=== PATIENT | female | born 1965 | race Caucasian/White ===

== ENCOUNTER 2021-05-30 12:37 | Emergency (ER) | payer OTHER ==
[~2021-05-30] VITALS: Ht 147.3 cm; Wt 108.9 kg
[~2021-05-30 12:37] MED LIST: CARTIA XT180 MG; FLEXERIL10 MG; IBUPROFEN800 MG PO; NEURONTIN800 MG; ORPH100T PO; PREMARIN0.45 MG; SYNTHROID88 MCG
[2021-05-30] MEDS ORDERED: DEPAKOTE ER500 MG PO (12:59)
[2021-05-30] MEDS ORDERED: OLANZAPINE2.5 MG PO (12:59)
[2021-05-30] MEDS ORDERED: BENADRYL25 MG (13:00)
[2021-05-30] MEDS ORDERED: COZAAR25 MG PO (13:00)
[2021-05-30] MEDS ORDERED: ESTAZOLAM1 MG PO (13:00)
[2021-05-30] MEDS ORDERED: TRANXENE T-TAB7.5 MG (13:01)
== END 2021-05-30 20:22 | disposition home or self-care (01) ==
LOC: ER 12:37
DX: R06.02 Shortness of breath (principal); Z20.822 Contact with and (suspected) exposure to COVID-19